=== PATIENT | female | born 1950 | race Asian ===

== ENCOUNTER 2018-07-26 21:11 | Emergency (ER) | payer MEDICARE, OTHER ==
--- NOTE | 2018-07-26 21:28 | ED ---
Dizziness - HPI Summary HPI Summary: Patient is a 67 y/o F presenting to ED with complaints of room-spinning dizziness onsetting as she was cooking dinner tonight. She states that she went onto her cough to lie down, but dizziness persisted. Patient states that she became nauseous, later vomited. In room, she states that she still feels "a bit weird" and nauseated. She denies having experienced ear ringing. BP is 201/122 in room, patient denies Hx of HTN. Patient is not on blood thinners, Hx of meningioma removal. On triage, pain is denied, nothing is noted to aggravate/ alleviate Sx. Home medications and allergies are reviewed. - History Of Current Complaint Chief Complaint: EDDizziness Stated Complaint: DIZZINESS/NAUSEA/VOMITING Time Seen by Provider: 07/26/18 21:16 Hx Obtained From: Patient Onset/Duration: Still Present Timing: Hours Severity Currently: None Character: Room Spinning Aggravating Factor(s): Nothing Alleviating Factor(s): Nothing Associated Signs And Symptoms: Positive: Nausea, Vomiting, Other: - NEGATIVE - EAR RINGING - Allergies/Home Medications Allergies/Adverse Reactions: Allergies Allergy/AdvReac Type Severity Reaction Status Date / Time Buspirone [From Buspar] Allergy Unknown AGITATED, Verified 11/05/16 11:02 SHIVERY SHAKES SEASONAL Allergy Unknown SNEEZES, Uncoded 11/05/16 11:02 ENVIRONMENTAL/HAYFEVER ITCHY EYES PMH/Surg Hx/FS Hx/Imm Hx Endocrine/Hematology History: Denies: Hx Diabetes Cardiovascular History: Denies: Hx Hypertension, Hx Pacemaker/ICD Respiratory History: Reports: Hx Asthma - HAVE NOT USED INHALERS IN OVER 8 YEARS GI History: Reports: Hx Gastroesophageal Reflux Disease - ACID REFLUX, PRN PEPTO BISMOL TABLET, NONE IN OVER 2 YEARS History: Reports: Other Problems/Disorders - dysplasia of vagina, urge incontinence Denies: Hx Renal Disease Musculoskeletal History: Reports: Other Musculoskeletal History - osteopenia Denies: Hx Osteoporosis Sensory History: Reports: Hx Contacts or Glasses Denies: Hx Hearing Aid Opthamlomology History: Reports: Hx Contacts or Glasses Neurological History: Reports: Hx Headaches - MORNING HEADACHES, Other Neuro Impairments/Disorders - MENGINOMA OF BRAIN Psychiatric History: Reports: Hx Anxiety - HX OF, NO MEDS, Hx Depression Denies: Hx Panic Disorder - Cancer History Hx Chemotherapy: No Hx Radiation Therapy: No - Surgical History Surgery Procedure, Year, and Place: 1949 REMOVAL OF BIRTHMARK ON HEAD, AN ;. 1956 TONSILECTOMY,. 1998 CERVIX BIOPSY,. 11/21/14 CYST REMOVED FROM LEFT EYE- ;. 09/06/15 MENINGECTOMY OF BRAIN - [facility] Anesthesia Reactions: No - SEDATION ONLY Infectious Disease History: No Infectious Disease History: Denies: Traveled Outside the [place] in Last 30 Days - Family History Known Family History: Negative: Blood Disorder - Social History Alcohol Use: Occasionally Substance Use Type: Reports: None Smoking Status (MU): Never Smoked Tobacco Review of Systems Positive: Other - NEGATIVE - EAR RINGING Positive: Vomiting, Nausea Neurological: Other - POSITIVE - DIZZINESS All Other Systems Reviewed And Are Negative: Yes Physical Exam - Summary Physical Exam Summary: VITAL SIGNS: Reviewed. GENERAL: Patient is a well-developed and nourished female who is lying comfortable in the stretcher. Patient is not in any acute respiratory distress. HEAD AND FACE: No signs of trauma. No ecchymosis, hematomas or skull depressions. No sinus tenderness. EYES: PERRLA, EOMI x 2, No injected conjunctiva, no nystagmus. EARS: Hearing grossly intact. Ear canals and tympanic membranes are within normal limits. MOUTH: Oropharynx within normal limits. NECK: Supple, trachea is midline, no adenopathy, no JVD, no carotid bruit, no c- spine tenderness, neck with full ROM. CHEST: Symmetric, no tenderness at palpation LUNGS: Clear to auscultation bilaterally. No wheezing or crackles. CVS: Regular rate and rhythm, S1 and S2 present, no murmurs or gallops appreciated. ABDOMEN: Soft, non-tender. No signs of distention. No rebound no guarding, and no masses palpated. Bowel sounds are normal. EXTREMITIES: FROM in all major joints, no edema, no cyanosis or clubbing. NEURO: Alert and oriented x 3. No acute neurological deficits. Speech is normal and follows commands. Good coordination. GCS 15. SKIN: Dry and warm Triage Information Reviewed: Yes Vital Signs On Initial Exam: Initial Vitals Temp Pulse Resp BP Pulse Ox 98.4 F 75 18 217/124 97 07/26/18 21:14 07/26/18 21:14 07/26/18 21:14 07/26/18 21:14 07/26/18 21:14 Vital Signs Reviewed: Yes Diagnostics - Vital Signs Vital Signs Temp Pulse Resp BP Pulse Ox 07/26/18 21:14 98.4 F 75 18 217/124 97 - Laboratory Result Diagrams: 07/26/18 21:52 07/26/18 21:52 Lab Statement: Any lab studies that have been ordered have been reviewed, and results considered in the medical decision making process. - CT brain ct CT Interpretation Completed By: Radiologist Summary of CT Findings: BRAIN CT IMPRESSION: No acute intracranial abnormality. This report was reviewed by ED physician. - EKG 2119 Cardiac Rate: NL - rate of 68 BPM EKG Rhythm: Sinus Rhythm Summary of EKG Findings: EKG showed sinus rhythm with rate of 68 BPM, non- specific T wave changes in inferior leads. Re-Evaluation - Re-Evaluation First Eval Re-Evaluation Time: 23:13 Change: Improved Comment: BP is 166/96. Results of labs and tests were discussed with patient, she will be discharged to home. She is agreeable with this. Dizzy Course/Dx - Course Course Of Treatment: Patient is a 67 y/o F presenting to ED with complaints of room-spinning dizziness onsetting as she was cooking dinner tonight. She states that she went onto her cough to lie down, but dizziness persisted. Patient states that she became nauseous, later vomited. In room, she states that she still feels "a bit weird" and nauseated. She denies having experienced ear ringing. BP is 201/122 in room, patient denies Hx of HTN. Patient is not on blood thinners, Hx of meningioma removal. Physical exam is normal, patient has good coordination. EKG showed sinus rhythm with rate of 68 BPM, non-specific T wave changes in inferior leads. BRAIN CT IMPRESSION: No acute intracranial abnormality. Labs showed MPV 6.7, BUN/creatinine 27.5, glucose 120, trop 0, TSH 3.34. UA negative. During ED course, patient received Zofran 8 mg IV, antivert 25 mg PO, apresoline 5 mg IV x2. BP is 166/96. Results of labs and tests were discussed with patient, she will be discharged to home. She is agreeable with this. - Diagnoses Provider Diagnoses: HTN (hypertension), Benign positional vertigo Discharge - Sign-Out/Discharge Documenting (check all that apply): Patient Departure - discharge - Discharge Plan Condition: Stable Disposition: HOME Prescriptions: Lisinopril TAB* [Prinivil TAB 5 MG*] 5 mg PO DAILY #30 tab Meclizine TAB* [Antivert 12.5 TAB*] 25 mg PO TID PRN #30 tab PRN Reason: Vertigo Patient Education Materials: Benign Paroxysmal Positional Vertigo (ED), Hypertension (ED) Referrals: Lakshmi Wilburn MD [Primary Care Provider] - 2 Days Additional Instructions: MONITOR YOUR BLOOD PRESSURE AT HOME. RETURN TO THE EMERGENCY DEPARTMENT FOR CHANGING OR WORSENING SYMPTOMS. FOLLOW UP WITH PRIMARY CARE PHYSICIAN IN 1-2 DAYS. - Attestation Statements Document Initiated by Scribe: Yes Documenting Scribe: AMARI DIETZ Provider For Whom Cain is Documenting (Include Credential): GRACY TEJEDA MD Scribe Attestation: AMARI Broderick , scribed for GRACY TEJEDA MD on 07/26/18 at 2217. Status of Scribe Document: Ready
[2018-07-26] MEDS ORDERED: Meclizine TAB* 12.5 MG PO ONE ×2 (21:30→23:20)
[2018-07-26] MEDS ORDERED: hydrALAZINE IV* 20 MG/ML VIAL IV SLOW PU ONE ×2 (21:30→22:19)
[2018-07-26 22:00] LABS: ABS Basophils 0.1 10^3/ul (0-0.2); ABS Eosinophils 0.1 10^3/ul (0-0.6); ABS Monocytes 0.3 10^3/ul (0-0.8); ABS Neutrophils 5.3 10^3/ul (1.5-7.7); ABS Nucleated RBC 0 10^3/ul; Eosinophil % 0.9 %; Hematocrit 41 % (35-47); Hemoglobin 13.7 g/dl (12.0-16.0); Lymphocyte % 15.1 %; Mean Corpuscular HGB Conc 33 g/dl (31-36); Mean Corpuscular Hemoglobin 30 pg (27-31); Mean Corpuscular Volume 90 fL (80-97); Mean Platelet Volume 6.7 fL (7.4-10.4); Nucleated Red Blood Cells % 0.1; Platelet Count 239 10^3/ul (150-450); Red Blood Count 4.62 10^6/ul (4.00-5.40); Red Cell Distribution Width 14 % (10.5-15); White Blood Count 6.7 10^3/ul (3.5-10.8)
[2018-07-26 22:08] LABS: Activated Partial Thrombo Time 28.7 seconds (26.0-36.3); INR 0.84 (0.77-1.02)
[2018-07-26 22:16] LABS: Albumin 4.2 g/dL (3.2-5.2); Albumin/Globulin Ratio 1.6 (1-3); BUN/Creatinine Ratio 27.5 (8-20); Calcium 9.6 mg/dL (8.6-10.3); EGFR Non-African American 71.1 (>60); Globulin 2.6 g/dL (2-4); Magnesium 2.1 mg/dL (1.9-2.7); Potassium 3.5 mmol/L (3.5-5.0); Total Bilirubin 0.4 mg/dL (0.2-1.0); Total Protein 6.8 g/dL (6.4-8.9)
[2018-07-26] MEDS ORDERED: Ondansetron INJ* 2 MG/ML VIAL IV ONE (22:32)
[2018-07-26 22:36] LABS: TSH (Thyroid Stimulating Horm) 3.34 mcIU/mL (0.34-5.60)
[2018-07-26 22:42] LABS: Urine Appearance Clear; Urine Bilirubin Negative (Negative); Urine Blood Negative (Negative); Urine Color Straw; Urine Glucose Negative (Negative); Urine Ketones Negative (Negative); Urine Nitrite Negative (Negative); Urine Protein Negative (Negative); Urine Specific Gravity 1.014 (1.010-1.030); Urine Urobilinogen Negative (Negative)
[2018-07-26 23:12] VITALS: BP 166/96
== END 2018-07-26 23:45 | disposition home or self-care (01) ==
LOC: ED 21:11
DX: I10 Essential (primary) hypertension (principal); H81.10 Benign paroxysmal vertigo, unspecified ear; R11.2 Nausea with vomiting, unspecified
CPT/HCPCS: 36415; 70450; 80053; 81003; 83735; 84443; 84484; 85025; 85610; 85730; 93005; 96374; 96375; 96376; 99284; A9270-GY; J0360; J2405

== ENCOUNTER 2019-10-07 09:35 | Day surgery (SDC) | payer MEDICARE, OTHER ==
--- NOTE | 2019-10-06 09:31 | HP ---
CC: Dr. Lakshmi Wilburn; Dr. Odessa Norris * ADMITTING HISTORY AND PHYSICAL: DATE OF ADMISSION: 10/07/19 ADMITTING DIAGNOSIS: Bladder tumor (questionable bladder primary versus tumor infiltrating into bladder). PLANNED PROCEDURE: Transurethral resection of bladder tumor, right retrograde and right stent insertion. SURGEON: Dr. Delaney. HISTORY OF PRESENT ILLNESS: Jeremias Potts is a 68-year-old lady who has had increasing discomfort related to the bladder in the form of increasing urinary frequency and urgency and incontinence. She had imaging done including a CT scan which revealed what appears to be a tumor within the bladder with some perivesical infiltrative changes. A cystoscopy done in my office last week had revealed a solid appearing tumor in the mid trigone extending to the bladder neck. This was fairly large and did not have a physical appearance of a primary bladder transitional cell carcinoma. The right orifice was difficult to visualize, and she is now being brought in for transurethral resection of the bladder tumor and possible right stent insertion. It is possible that the tumor instead of arising from the mucosa of the bladder may be infiltrating into the bladder, and Dr. Norris will be doing the procedure after my procedure for an endometrial biopsy. PAST MEDICAL HISTORY: Significant for: 1. Hypertension. 2. Asthma. 3. History of meningioma. PAST SURGICAL HISTORY: Significant for: 1. Craniotomy. 2. Pulmonary meningioma in 2016. MEDICATIONS ON ADMISSION: 1. Amlodipine 5 mg daily. 2. Pulmicort inhaler daily. 3. Multiple vitamins and supplements. ALLERGIES AND INTOLERANCES: BUSPAR and LISINOPRIL. FAMILY HISTORY: Negative for bladder or kidney cancer. SOCIAL HISTORY: Smoking history: She is a nonsmoker. REVIEW OF SYSTEMS: She is otherwise in good health. There is no history of diabetes mellitus or any other major systemic illness. PHYSICAL EXAMINATION GENERAL: Reveals a pleasant elderly lady who uses a cane for ambulation. VITAL SIGNS: Blood pressure is 122/82, pulse 70 per minute and regular, temperature 96, oxygen saturation 98% on room air. LUNGS: Clear bilaterally. CARDIOVASCULAR: Regular rate and rhythm. S1, S2. ABDOMEN: Soft without flank tenderness or masses. IMPRESSION: A 68-year-old nonsmoker with what appears to be a bladder tumor with a somewhat unusual appearance and not typical of a primary bladder transitional cell carcinoma. Planned procedure is transurethral resection of bladder tumor and right stent insertion. [id number]/CPS #: [id number] [facility]OSPITALArias
[~2019-10-07 09:35] MED LIST: Buffered Lidocaine 1% SYRIN* 1 ML/SYRINGE INTRADERM ONE; Dexamethasone IV* 4 MG/ML 1 ML (4 MG) IV SLOW PU ONE; Famotidine IV* 10 MG/ML 2 ML (20 mg) IV ONE; Lactated Ringers 1000 ML Bag* 1,000 ML IV SCH
[2019-10-07] MEDS ORDERED: Dexamethasone IV* 4 MG/ML 1 ML (4 MG) ONE (09:58)
[2019-10-07] MEDS ORDERED: Buffered Lidocaine 1% SYRIN* 1 ML/SYRINGE INTRADERM ONE (09:59)
[2019-10-07] MEDS ORDERED: Famotidine IV* 10 MG/ML 2 ML (20 mg) ONE (09:59)
[2019-10-07] MEDS ORDERED: cefTRIAXone(*) 2 GM ADDV.VIAL IVPB ONE (09:59)
[2019-10-07] MEDS ORDERED: Midazolam* 1 MG/ML 2 ML VIAL (2 MG) ONE (11:01)
[2019-10-07] MEDS ORDERED: fentaNYL* 50 MCG/ML 2 ML VIAL (100 MCG VIAL) ONE (11:01)
[2019-10-07 11:08] LABS: ABS Basophils 0.1 10^3/ul (0-0.2); ABS Eosinophils 0.1 10^3/ul (0-0.6); ABS Lymphocytes 1.1 10^3/ul (1.0-4.8); ABS Monocytes 0.3 10^3/ul (0-0.8); ABS Neutrophils 3.1 10^3/ul (1.5-7.7); Eosinophil % 1.2 %; Hematocrit 40 % (35-47); Hemoglobin 13.5 g/dL (12.0-16.0); Mean Corpuscular HGB Conc 34 g/dL (31-36); Mean Corpuscular Hemoglobin 30 pg (27-31); Mean Corpuscular Volume 89 fL (80-97); Mean Platelet Volume 6.7 fL (7.4-10.4); Platelet Count 268 10^3/uL (150-450); Red Blood Count 4.49 10^6 /uL (3.70-4.87); Red Cell Distribution Width 14 % (10-15); White Blood Count 4.6 10^3/uL (3.5-10.8)
[2019-10-07] MEDS ORDERED: Furosemide IV* 10 MG/ML 2 ML VIAL (20 MG) ONE (11:57)
[2019-10-07] MEDS ORDERED: Fluorescein 10% INJ* 100 MG/ML AMP ONE (11:59)
[2019-10-07] MEDS ORDERED: Naloxone* 0.4 MG/ML 1 ML VIAL IV PRN (13:22)
[2019-10-07] MEDS ORDERED: DiMENhydriNATE IV* 50 MG/ML VIAL IV PUSH PRN (13:22)
[2019-10-07] MEDS ORDERED: fentaNYL* 50 MCG/ML 2 ML VIAL (100 MCG VIAL) IV PRN (13:22)
[2019-10-07] MEDS ORDERED: Ketorolac INJ* 30 MG/ML 1 ML VIAL IV PRN (13:22)
[2019-10-07] MEDS ORDERED: Iohexol 180 (CONTRAST) 10 ML SDV IV ONE (14:58)
--- NOTE | 2019-10-07 15:04 | OP ---
CC: Dr. Lakshmi Wilburn * DATE OF OPERATION: 10/07/19 - [facility] DATE OF : 46 SURGEON: Cricket Delaney MD ANESTHESIOLOGIST: Dr. Falcon. ANESTHESIA: Spinal. PRE-OP DIAGNOSES: 1. Bladder tumor. 2. Voiding dysfunction. POST-OP DIAGNOSES: 1. Bladder tumor. 2. Voiding dysfunction. OPERATIVE PROCEDURE: 1. Transurethral resection and fulguration of bladder tumor (5 to 6 cm). 2. Right retrograde pyelogram and right stent insertion. COMPLICATIONS: None. ESTIMATED BLOOD LOSS: Less than 25 cc. STENT USED: 7-[place] stent, right ureter. OPERATIVE FINDINGS: Solid-appearing tumor involving mid to right side of trigone of urinary bladder and extending towards bladder neck (not a typical appearance of primary bladder carcinoma). POSTOPERATIVE CONDITION: Stable. INDICATIONS: Jeremias Potts is a 68-year-old lady who was evaluated for voiding dysfunction and was noted to have the above-mentioned bladder tumor. DESCRIPTION OF PROCEDURE: After induction of spinal anesthesia, the patient was placed in dorsal lithotomy position. Sequential compression devices were in place and functioning. 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 The bladder was examined. The floor of the bladder from the trigone to the bladder neck especially on the right side was involved with a solid tumor with a pseudopapillary appearance. This does not have the typical appearance of a primary bladder carcinoma, but may represent a tumor infiltrating into the bladder from outside or a non-transitional neoplasm. The tumor was encroaching on, but not obstructing the right orifice. The remainder of the bladder was unremarkable. A guidewire was introduced into the right orifice. Retrograde pyelogram did not reveal any significant evidence of obstruction, although the distal most part of the ureter certainly appeared to be partly occluded on advancement of the open- ended catheter. Next, attention was directed to resecting the tumor, which was done using the resectoscope in standard fashion. The resected tumor was removed and sent for histopathology. Hemostasis was secured at the end of the procedure and there was no evidence of bladder perforation. Next, a 7-[place] stent was placed over the previously placed guidewire. Once this was successfully positioned under fluoroscopy, a 24-[place] Gabriel catheter was placed for temporary bladder drainage. At the conclusion of my part of the procedure, Dr. Norris of Gynecology took over for her procedure, which will be dictated separately. [id number]/[facility] #: [id number] NANCY
[2019-10-07] MEDS ORDERED: Ketorolac INJ* 30 MG/ML 1 ML VIAL ONE (15:33)
[2019-10-07 17:27] VITALS: BP 128/78
--- NOTE | 2019-10-08 11:13 | OP ---
DATE OF OPERATION: 10/07/19 DATE OF : 46 SURGEON: Odessa Norris MD. KNOWLEDGE MANAGEMENT ADVISOR: None. PRE-OP DIAGNOSIS: Endometrial thickening. POST-OP DIAGNOSES: Endometrial thickening and endometrial polyp. OPERATIVE PROCEDURE: Dilation, curettage, and MyoSure resection of endometrial polyp. ESTIMATED BLOOD LOSS: Minimal. URINE OUTPUT: Not recorded. FLUIDS: 1500 cc total, this includes the portion of the case that was done by Urology. FINDINGS: Revealed an intrauterine mass posterior wall measuring about 1.5 cm in size and several endocervical polyps. COMPLICATIONS: None apparent. DISPOSITION: Stable to recovery room. DESCRIPTION OF PROCEDURE: The patient was placed in cystoscopic fluoroscopic leg supports. Perineum and vagina were prepped and draped in the sterile standard fashion. The patient was identified with universal protocol for correct position, procedure, and patient. A Gabriel catheter was already in place from prior procedure of resection of the bladder wall. Sterile speculum was inserted. Cervix was visualized, grasped on the anterior lip. The cervix was dilated to #6 Hegar. Hysteroscopy was inserted which revealed an endometrial mass that would require MyoSure resection. Scope was then opened up. The Hegar dilators were then used to dilate to #8. The MyoSure scope was then inserted and the resection was carried out with a small resection blade in total. Uterine cavity with normal appearance after resection of this posterior wall endometrial mass, tubal ostia were visualized. The resectoscope was removed. There was 1 cervical polyp that was also resected in the endocervical canal with the MyoSure resectoscope. Sharp curettage was performed. Single- tooth tenaculum was removed. Sterile speculum was removed. The patient tolerated the procedure well and went to recovery room in stable condition. [id number]/CPS #: [id number] MTDD
== END 2019-10-07 18:24 | disposition home or self-care (01) ==
LOC: OR 09:35
PROVIDERS: ATTEND Urology
DX: C67.0 Malignant neoplasm of trigone of bladder (principal); N84.0 Polyp of corpus uteri; I10 Essential (primary) hypertension; J45.909 Unspecified asthma, uncomplicated; Z85.841 Personal history of malignant neoplasm of brain; K21.9 Gastro-esophageal reflux disease without esophagitis; F41.8 Other specified anxiety disorders; M85.80 Other specified disorders of bone density and structure, unspecified site
CPT/HCPCS: 36415; 74420; 85025; 86850; 86900; 86901; 88305; A9270-GY; C2625; J0696; J1100; J1885; J1940; J2250; J3010

== ENCOUNTER 2020-08-06 21:55 | Inpatient (IN) ==
[2020-08-06] MEDS ORDERED: NS 0.9% 1000 ml BAG 1,000 ML IV.FLUID IV ONE (22:26)
[2020-08-06] MEDS ORDERED: cefTRIAXone 1 gm/50 mL NS BAG 1 GM/50 ML BAG IV ONE (22:47)
[2020-08-06 22:59] LABS: Urine Appearance Turbid; Urine Bilirubin Negative (Negative); Urine Blood 1+ (Negative); Urine Color Amber; Urine Glucose Negative (Negative); Urine Ketones Negative (Negative); Urine Nitrite Negative (Negative); Urine Protein 2+(100 mg/dL) (Negative); Urine Specific Gravity 1.011 (1.010-1.030); Urine Urobilinogen Negative (Negative)
[2020-08-06 23:02] LABS: Urine Bacteria 3+ (Absent); Urine Red Blood Cell 3+(>10/hpf) (Absent); Urine White Blood Cell 3+(>20/hpf) (Absent)
[2020-08-06 23:28] LABS: ABS Lymphocytes 0.4 10^3/ul (1.0-4.8); ABS Monocytes 0.8 10^3/ul (0-0.8); ABS Neutrophils 9.4 10^3/ul (1.5-7.7); Hematocrit 35 % (35-47); Hemoglobin 11.8 g/dL (12.0-16.0); Mean Corpuscular HGB Conc 34 g/dL (31-36); Mean Corpuscular Hemoglobin 30 pg (27-31); Mean Corpuscular Volume 90 fL (80-97); Platelet Count 193 10^3/uL (150-450); Red Blood Count 3.91 10^6 /uL (3.70-4.87); Red Cell Distribution Width 14 % (10-15); White Blood Count 10.6 10^3/uL (3.5-10.8)
[2020-08-06 23:40] LABS: Activated Partial Thrombo Time 31.7 seconds (26.0-38.0); INR 1.07 (0.82-1.09)
[2020-08-06 23:47] LABS: ALT 103 U/L (7-52); AST 74 U/L (13-39); Albumin/Globulin Ratio 1.1 (1-3); Alkaline Phosphatase 136 U/L (34-104); Anion Gap 10 mmol/L (2-11); BUN/Creatinine Ratio 18.7 (8-20); Blood Urea Nitrogen 41 mg/dL (6-24); C Reactive Protein 237.49 mg/L (<8.01); CO2 Carbon Dioxide 24 mmol/L (22-32); Calcium 9.8 mg/dL (8.6-10.3); Chloride 99 mmol/L (101-111); EGFR African American 26.8 (>60); EGFR Non-African American 22.1 (>60); Globulin 3.8 g/dL (2-4); Glucose 117 mg/dL (70-100); Potassium 4.1 mmol/L (3.5-5.0); Sodium 133 mmol/L (135-145); Total Protein 7.8 g/dL (6.4-8.9)
[2020-08-06 23:58] LABS: Troponin I 0.04 ng/mL (<0.03)
[2020-08-07] MEDS ORDERED: Albuterol HFA INHALER 8 gm MDI INH PRN (01:38)
[2020-08-07] MEDS ORDERED: cefTRIAXone 1 gm/50 mL NS BAG 1 GM/50 ML BAG IVPB SCH ×2 (01:44→09:00)
[2020-08-07] MEDS ORDERED: Lactated Ringers 1000 ml BAG 1,000 ML IV SCH (02:00)
[2020-08-07] MEDS: Polyethylene Glycol 3350 17 GM PACKET PO SCH ×2 (04:37→07:45)
[2020-08-07 05:33] LABS: ABS Lymphocytes 0.3 10^3/ul (1.0-4.8); ABS Monocytes 0.8 10^3/ul (0-0.8); ABS Neutrophils 8.1 10^3/ul (1.5-7.7); Eosinophil % 0.1 %; Hematocrit 31 % (35-47); Hemoglobin 10.5 g/dL (12.0-16.0); Lymphocyte % 2.8 %; Mean Corpuscular HGB Conc 33 g/dL (31-36); Mean Corpuscular Hemoglobin 30 pg (27-31); Mean Corpuscular Volume 90 fL (80-97); Mean Platelet Volume 6.8 fL (7.4-10.4); Platelet Count 171 10^3/uL (150-450); Red Cell Distribution Width 13 % (10-15); White Blood Count 9.2 10^3/uL (3.5-10.8)
[2020-08-07 05:55] LABS: Anion Gap 8 mmol/L (2-11); BUN/Creatinine Ratio 18.8 (8-20); Blood Urea Nitrogen 36 mg/dL (6-24); CO2 Carbon Dioxide 20 mmol/L (22-32); Calcium 8.5 mg/dL (8.6-10.3); Chloride 107 mmol/L (101-111); EGFR African American 31.2 (>60); EGFR Non-African American 25.7 (>60); Glucose 121 mg/dL (70-100); Potassium 3.7 mmol/L (3.5-5.0); Sodium 135 mmol/L (135-145)
[2020-08-07] MEDS: Enoxaparin 30 MG/0.3 ML SYR SUBCUT SCH (06:27)
[2020-08-07] MEDS: Cholecalciferol (VIT D3) 1,000 unit TAB PO SCH (07:45)
[2020-08-07] MEDS: VISION ESSENTIAL PO SCH (07:45)
[2020-08-07] MEDS ORDERED: Budesonide Flexhaler 180 (NF) 180 MCG/ACT MDI INH SCH (09:00)
[2020-08-07 09:21] LABS: Troponin I 0.03 ng/mL (<0.03)
[2020-08-07] MEDS: cefTRIAXone 1 gm/50 mL NS BAG 1 GM/50 ML BAG IVPB SCH (23:58)
[2020-08-08] MEDS: Enoxaparin 30 MG/0.3 ML SYR SUBCUT SCH (05:18)
[2020-08-08 08:17] LABS: ABS Lymphocytes 0.4 10^3/ul (1.0-4.8); ABS Monocytes 0.6 10^3/ul (0-0.8); ABS Neutrophils 4.9 10^3/ul (1.5-7.7); Eosinophil % 0.3 %; Hematocrit 29 % (35-47); Lymphocyte % 6.8 %; Mean Corpuscular HGB Conc 35 g/dL (31-36); Mean Corpuscular Hemoglobin 31 pg (27-31); Mean Corpuscular Volume 89 fL (80-97); Mean Platelet Volume 7.2 fL (7.4-10.4); Nucleated Red Blood Cells % 0.1; Platelet Count 167 10^3/uL (150-450); Red Blood Count 3.25 10^6 /uL (3.70-4.87); Red Cell Distribution Width 13 % (10-15); White Blood Count 5.9 10^3/uL (3.5-10.8)
[2020-08-08 08:32] LABS: Anion Gap 6 mmol/L (2-11); BUN/Creatinine Ratio 15.4 (8-20); Blood Urea Nitrogen 28 mg/dL (6-24); CO2 Carbon Dioxide 24 mmol/L (22-32); Calcium 8.5 mg/dL (8.6-10.3); Chloride 108 mmol/L (101-111); EGFR African American 33.1 (>60); EGFR Non-African American 27.4 (>60); Glucose 117 mg/dL (70-100); Potassium 3.6 mmol/L (3.5-5.0); Sodium 138 mmol/L (135-145)
[2020-08-08] MEDS: Polyethylene Glycol 3350 17 GM PACKET PO SCH (09:34)
[2020-08-08] MEDS: Cholecalciferol (VIT D3) 1,000 unit TAB PO SCH (09:34)
[2020-08-08] MEDS: VISION ESSENTIAL PO SCH (09:36)
[2020-08-08 09:38] LABS: ALT 81 U/L (7-52); AST 62 U/L (13-39); Albumin 2.9 g/dL (3.2-5.2); Alkaline Phosphatase 159 U/L (34-104); Total Protein 5.9 g/dL (6.4-8.9)
[2020-08-08] MEDS: cefTRIAXone 1 gm/50 mL NS BAG 1 GM/50 ML BAG IVPB SCH (23:25)
[2020-08-09] MEDS: Enoxaparin 30 MG/0.3 ML SYR SUBCUT SCH (04:35)
[2020-08-09 04:43] LABS: ABS Lymphocytes 0.5 10^3/ul (1.0-4.8); ABS Monocytes 0.7 10^3/ul (0-0.8); ABS Neutrophils 4.7 10^3/ul (1.5-7.7); Eosinophil % 0.5 %; Hematocrit 30 % (35-47); Hemoglobin 10.1 g/dL (12.0-16.0); Lymphocyte % 7.9 %; Mean Corpuscular HGB Conc 34 g/dL (31-36); Mean Corpuscular Hemoglobin 30 pg (27-31); Mean Corpuscular Volume 89 fL (80-97); Platelet Count 197 10^3/uL (150-450); Red Cell Distribution Width 13 % (10-15)
[2020-08-09 04:58] LABS: BUN/Creatinine Ratio 14.5 (8-20); Calcium 8.7 mg/dL (8.6-10.3); EGFR African American 35.1 (>60); Potassium 3.5 mmol/L (3.5-5.0)
[2020-08-09] MEDS: Polyethylene Glycol 3350 17 GM PACKET PO SCH (08:39)
[2020-08-09] MEDS: Cholecalciferol (VIT D3) 1,000 unit TAB PO SCH (08:39)
[2020-08-09] MEDS: VISION ESSENTIAL PO SCH (08:44)
[2020-08-09] MEDS: cefTRIAXone 1 gm/50 mL NS BAG 1 GM/50 ML BAG IVPB SCH (23:07)
[2020-08-10] MEDS: Enoxaparin 30 MG/0.3 ML SYR SUBCUT SCH (04:59)
[2020-08-10 05:27] LABS: ABS Eosinophils 0.1 10^3/ul (0-0.6); ABS Lymphocytes 0.7 10^3/ul (1.0-4.8); ABS Monocytes 0.8 10^3/ul (0-0.8); ABS Neutrophils 3.2 10^3/ul (1.5-7.7); Eosinophil % 1.3 %; Hematocrit 29 % (35-47); Hemoglobin 9.9 g/dL (12.0-16.0); Lymphocyte % 15.4 %; Mean Corpuscular HGB Conc 34 g/dL (31-36); Mean Corpuscular Hemoglobin 30 pg (27-31); Mean Corpuscular Volume 90 fL (80-97); Platelet Count 231 10^3/uL (150-450); Red Blood Count 3.28 10^6 /uL (3.70-4.87); Red Cell Distribution Width 13 % (10-15); White Blood Count 4.8 10^3/uL (3.5-10.8)
[2020-08-10 05:44] LABS: Anion Gap 7 mmol/L (2-11); BUN/Creatinine Ratio 15.1 (8-20); Blood Urea Nitrogen 26 mg/dL (6-24); C Reactive Protein 73.73 mg/L (<8.01); CO2 Carbon Dioxide 25 mmol/L (22-32); Calcium 8.9 mg/dL (8.6-10.3); Chloride 109 mmol/L (101-111); EGFR African American 35.4 (>60); EGFR Non-African American 29.2 (>60); Glucose 114 mg/dL (70-100); Potassium 3.8 mmol/L (3.5-5.0); Sodium 141 mmol/L (135-145)
[2020-08-10] MEDS: Polyethylene Glycol 3350 17 GM PACKET PO SCH (09:28)
[2020-08-10] MEDS: Cholecalciferol (VIT D3) 1,000 unit TAB PO SCH (09:29)
[2020-08-10] MEDS: VISION ESSENTIAL PO SCH (09:30)
[2020-08-10 11:07] LABS: % Iron Saturation 14 % (15-55); Iron 35 ug/dL (50-212); Total Iron Binding Capacity 246 mcg/dL (250-450); Transferrin 176 mg/dL (203-362); Unsaturated Iron Binding < 231 ug/dL
[2020-08-10 12:35] LABS: Ferritin 141.9 ng/mL (11-307)
[2020-08-10] MEDS: cefTRIAXone 1 gm/50 mL NS BAG 1 GM/50 ML BAG IVPB SCH (23:20)
[2020-08-11] MEDS: Enoxaparin 30 MG/0.3 ML SYR SUBCUT SCH (05:34)
[2020-08-11 06:09] LABS: BUN/Creatinine Ratio 18.3 (8-20); EGFR African American 37.4 (>60); EGFR Non-African American 30.9 (>60); Potassium 4.1 mmol/L (3.5-5.0)
[2020-08-11 06:11] LABS: ABS Basophils 0.1 10^3/ul (0-0.2); ABS Eosinophils 0.1 10^3/ul (0-0.6); ABS Monocytes 0.6 10^3/ul (0-0.8); ABS Neutrophils 2.8 10^3/ul (1.5-7.7); Eosinophil % 2.2 %; Hematocrit 30 % (35-47); Lymphocyte % 21.4 %; Mean Corpuscular HGB Conc 33 g/dL (31-36); Mean Corpuscular Hemoglobin 30 pg (27-31); Mean Corpuscular Volume 89 fL (80-97); Mean Platelet Volume 6.8 fL (7.4-10.4); Nucleated Red Blood Cells % 0.1; Platelet Count 275 10^3/uL (150-450); Red Blood Count 3.37 10^6 /uL (3.70-4.87); Red Cell Distribution Width 14 % (10-15); White Blood Count 4.5 10^3/uL (3.5-10.8)
[2020-08-11] MEDS: Cholecalciferol (VIT D3) 1,000 unit TAB PO SCH (10:11)
[2020-08-11] MEDS: Polyethylene Glycol 3350 17 GM PACKET PO SCH (10:11)
[2020-08-11] MEDS: VISION ESSENTIAL PO SCH (10:21)
[2020-08-11 13:45] VITALS: BP 100/70
== END 2020-08-11 15:45 | disposition home or self-care (01) | DRG 872 ==
LOC: ED 21:55 → MED 08-07 01:33
PROVIDERS: ADMIT Internal Medicine; ATTEND Student in an Organized Health Care Education/Training Program

== ENCOUNTER 2022-05-02 14:08 | Inpatient (IN) ==
[2022-05-02] MEDS ORDERED: NS 0.9% 1000 ml BAG 1,000 ML IV ONE (16:15)
[2022-05-02 17:08] LABS: Activated Partial Thrombo Time 35.6 seconds (26.0-38.0); INR 0.93 (0.89-1.11)
[2022-05-02 17:14] LABS: Albumin 3.7 g/dL (3.2-5.2); Calcium 8.9 mg/dL (8.6-10.3); Total Bilirubin 0.8 mg/dL (0.2-1.0)
[2022-05-02 17:16] LABS: Hematocrit 25 % (35-47); Hemoglobin 8.2 g/dL (12.0-16.0); Mean Corpuscular HGB Conc 33 g/dL (31-36); Mean Corpuscular Hemoglobin 31 pg (27-31); Mean Corpuscular Volume 94 fL (80-97); Red Blood Count 2.69 10^6 /uL (3.70-4.87); Red Cell Distribution Width 16 % (10-15); White Blood Count 3.1 10^3/uL (3.5-10.8)
[2022-05-02 17:20] LABS: Albumin/Globulin Ratio 1.4 (1-3); Globulin 2.7 g/dL (2-4); Total Protein 6.4 g/dL (6.4-8.9); eGFR CKD-EPI 59.5 (>60)
[2022-05-02 18:30] LABS: ABS Lymphocytes 0.5 10^3/ul (1.0-4.8); ABS Monocytes 0.1 10^3/ul (0-0.8); ABS Neutrophils 2.6 10^3/ul (1.5-7.7); Eosinophil % 0.4 %; Lymphocyte % 15.2 %; Mean Platelet Volume 7.1 fL (7.4-10.4); Nucleated Red Blood Cells % 0.1; Platelet Count 70 10^3/uL (150-450)
[2022-05-02] MEDS ORDERED: Magnesium Sulfate IV 3 GM in NS 0.9% 100 ml BAG 100 ML IVPB ONE (18:47)
[2022-05-02] MEDS ORDERED: Polyethylene Glycol 3350 17 GM PACKET PO PRN (20:00)
[2022-05-02 22:24] LABS: Ferritin 309.7 ng/mL (11-307)
[2022-05-02 22:29] LABS: Hematocrit 24 % (35-47)
[2022-05-03 06:20] LABS: ABS Lymphocytes 0.6 10^3/ul (1.0-4.8); ABS Monocytes 0.1 10^3/ul (0-0.8); ABS Neutrophils 1.8 10^3/ul (1.5-7.7); Eosinophil % 0.9 %; Hematocrit 24 % (35-47); Hemoglobin 7.7 g/dL (12.0-16.0); Lymphocyte % 25.3 %; Mean Corpuscular HGB Conc 33 g/dL (31-36); Mean Corpuscular Hemoglobin 31 pg (27-31); Mean Corpuscular Volume 94 fL (80-97); Mean Platelet Volume 7.1 fL (7.4-10.4); Platelet Count 57 10^3/uL (150-450); Red Blood Count 2.52 10^6 /uL (3.70-4.87); Red Cell Distribution Width 16 % (10-15); White Blood Count 2.5 10^3/uL (3.5-10.8)
[2022-05-03 06:54] LABS: Calcium 8.2 mg/dL (8.6-10.3); Magnesium 2.2 mg/dL (1.9-2.7); Potassium 3.6 mmol/L (3.5-5.0); eGFR CKD-EPI 58.8 (>60)
[2022-05-03] MEDS ORDERED: Sodium Phosphate ADULT ENEMA 133 ML BTL PR ONE ×4 (08:00→08:30)
[2022-05-03 11:30] LABS: Calcium 8.5 mg/dL (8.6-10.3); Potassium 3.6 mmol/L (3.5-5.0); eGFR CKD-EPI 57.4 (>60)
[2022-05-03] MEDS ORDERED: Midazolam 5 mg/5 ml VIAL 1 mg/ml 5 ml VIAL (5 mg) ONE (12:19)
[2022-05-03] MEDS ORDERED: fentaNYL 100 mcg/2 ml 50 MCG/ML VIAL ONE (12:19)
[2022-05-03] MEDS ORDERED: Piperacillin/Tazobac ADVAN 3.375 GM in NS 0.9% 100 ml BAG 100 ML IV ONE (17:30)
[2022-05-03] MEDS ORDERED: Zosyn per Pharmacy NOTE FOLLOW UP SCH (18:00)
[2022-05-03] MEDS: HYDROcodone/ACETAMIN 5/325 mg TAB PO PRN (22:43)
[2022-05-03] MEDS: ZOSYN 3.375 GM Q8H per EXTENDED INFUSION IV SCH (23:08)
[2022-05-03 23:32] LABS: ABS Lymphocytes 0.4 10^3/ul (1.0-4.8); ABS Monocytes 0.1 10^3/ul (0-0.8); ABS Neutrophils 1.1 10^3/ul (1.5-7.7); Eosinophil % 1.2 %; Hematocrit 23 % (35-47); Hemoglobin 7.5 g/dL (12.0-16.0); Lymphocyte % 27.3 %; Mean Corpuscular HGB Conc 33 g/dL (31-36); Mean Corpuscular Hemoglobin 31 pg (27-31); Mean Corpuscular Volume 93 fL (80-97); Mean Platelet Volume 7.4 fL (7.4-10.4); Platelet Count 52 10^3/uL (150-450); Red Blood Count 2.46 10^6 /uL (3.70-4.87); Red Cell Distribution Width 16 % (10-15); White Blood Count 1.6 10^3/uL (3.5-10.8)
[2022-05-03 23:59] LABS: Potassium 3.4 mmol/L (3.5-5.0); eGFR CKD-EPI 58.1 (>60)
[2022-05-04 05:33] LABS: Hematocrit 22 % (35-47); Hemoglobin 7.2 g/dL (12.0-16.0); Mean Corpuscular HGB Conc 33 g/dL (31-36); Mean Corpuscular Hemoglobin 31 pg (27-31); Mean Corpuscular Volume 93 fL (80-97); Mean Platelet Volume 7.4 fL (7.4-10.4); Platelet Count 45 10^3/uL (150-450); Red Blood Count 2.34 10^6 /uL (3.70-4.87); Red Cell Distribution Width 16 % (10-15); White Blood Count 1.5 10^3/uL (3.5-10.8)
[2022-05-04 05:40] LABS: Potassium 3.5 mmol/L (3.5-5.0); eGFR CKD-EPI 55.5 (>60)
[2022-05-04] MEDS: ZOSYN 3.375 GM Q8H per EXTENDED INFUSION IV SCH ×3 (06:13→21:43)
[2022-05-04] MEDS ORDERED: Influenza vaccine *QUAD* *2022-23* 0.5 ML SYRINGE IM ONE (09:00)
[2022-05-05] MEDS: ZOSYN 3.375 GM Q8H per EXTENDED INFUSION IV SCH ×3 (06:01→21:11)
[2022-05-05 06:21] LABS: ABS Lymphocytes 0.6 10^3/ul (1.0-4.8); ABS Monocytes 0.1 10^3/ul (0-0.8); ABS Neutrophils 1.5 10^3/ul (1.5-7.7); Eosinophil % 0.4 %; Hematocrit 22 % (35-47); Hemoglobin 7.1 g/dL (12.0-16.0); Lymphocyte % 25.2 %; Mean Corpuscular HGB Conc 33 g/dL (31-36); Mean Corpuscular Hemoglobin 30 pg (27-31); Mean Corpuscular Volume 93 fL (80-97); Mean Platelet Volume 8.1 fL (7.4-10.4); Platelet Count 34 10^3/uL (150-450); Red Blood Count 2.32 10^6 /uL (3.70-4.87); Red Cell Distribution Width 16 % (10-15); White Blood Count 2.2 10^3/uL (3.5-10.8)
[2022-05-05 07:07] LABS: C Reactive Protein 30.95 mg/L (<8.01); Potassium 3.2 mmol/L (3.5-5.0); eGFR CKD-EPI 59.5 (>60)
[2022-05-05 07:57] LABS: Magnesium 1.7 mg/dL (1.9-2.7)
[2022-05-05] MEDS ORDERED: Magnesium Sulfate 2 gm BAG 2 GM/50 ML BAG IVPB ONE (09:02)
[2022-05-05] MEDS: KCL 20 MEQ/100 ML IVPREMIX 20 MEQ/100 ML BAG IV SCH ×3 (10:39→16:17)
[2022-05-05 17:39] LABS: Hematocrit 28 % (35-47); Hemoglobin 9.3 g/dL (12.0-16.0)
[2022-05-05 22:53] LABS: Hematocrit 29 % (35-47); Hemoglobin 9.4 g/dL (12.0-16.0)
[2022-05-06] MEDS: ZOSYN 3.375 GM Q8H per EXTENDED INFUSION IV SCH ×3 (05:28→22:28)
[2022-05-06 07:27] LABS: ABS Lymphocytes 0.7 10^3/ul (1.0-4.8); ABS Monocytes 0.2 10^3/ul (0-0.8); ABS Neutrophils 1.3 10^3/ul (1.5-7.7); Eosinophil % 1.1 %; Hematocrit 26 % (35-47); Hemoglobin 8.6 g/dL (12.0-16.0); Lymphocyte % 31.2 %; Mean Corpuscular HGB Conc 34 g/dL (31-36); Mean Corpuscular Hemoglobin 31 pg (27-31); Mean Corpuscular Volume 92 fL (80-97); Mean Platelet Volume 7.8 fL (7.4-10.4); Nucleated Red Blood Cells % 0.1; Platelet Count 27 10^3/uL (150-450); Red Blood Count 2.79 10^6 /uL (3.70-4.87); Red Cell Distribution Width 16 % (10-15); White Blood Count 2.2 10^3/uL (3.5-10.8)
[2022-05-06 07:37] LABS: C Reactive Protein 25.42 mg/L (<8.01); Potassium 3.5 mmol/L (3.5-5.0); eGFR CKD-EPI 65.7 (>60)
[2022-05-06] MEDS: HYDROcodone/ACETAMIN 5/325 mg TAB PO PRN (09:13)
[2022-05-06] MEDS: Polyethylene Glycol 3350 17 GM PACKET PO SCH (09:13)
[2022-05-07] MEDS: ZOSYN 3.375 GM Q8H per EXTENDED INFUSION IV SCH ×3 (06:25→23:59)
[2022-05-07] MEDS: Polyethylene Glycol 3350 17 GM PACKET PO SCH (09:34)
[2022-05-07 12:20] LABS: Hematocrit 26 % (35-47); Hemoglobin 8.5 g/dL (12.0-16.0); Mean Corpuscular HGB Conc 33 g/dL (31-36); Mean Corpuscular Hemoglobin 30 pg (27-31); Mean Corpuscular Volume 92 fL (80-97); Red Blood Count 2.79 10^6 /uL (3.70-4.87); Red Cell Distribution Width 15 % (10-15); White Blood Count 2.3 10^3/uL (3.5-10.8)
[2022-05-07 12:21] LABS: ABS Lymphocytes 0.6 10^3/ul (1.0-4.8); ABS Monocytes 0.2 10^3/ul (0-0.8); ABS Neutrophils 1.5 10^3/ul (1.5-7.7); Eosinophil % 0.7 %; Lymphocyte % 27.7 %
[2022-05-07 12:43] LABS: Potassium 3.3 mmol/L (3.5-5.0); eGFR CKD-EPI 63.3 (>60)
[2022-05-07 13:23] LABS: Mean Platelet Volume 7.7 fL (7.4-10.4); Platelet Count 20 10^3/uL (150-450)
[2022-05-07 15:27] LABS: Magnesium 1.5 mg/dL (1.9-2.7)
[2022-05-07] MEDS ORDERED: Magnesium Sulf 4 GM/100 ML IV 4,000 MG/100 ML BAG IVPB ONE ×2 (17:47→22:00)
[2022-05-07] MEDS: HYDROcodone/ACETAMIN 5/325 mg TAB PO PRN (17:49)
[2022-05-07] MEDS: KCL 20 MEQ/100 ML IVPREMIX 20 MEQ/100 ML BAG IV SCH ×3 (19:56→21:29)
[2022-05-08] MEDS: KCL 20 MEQ/100 ML IVPREMIX 20 MEQ/100 ML BAG IV SCH ×2 (04:20→05:54)
[2022-05-08] MEDS: ZOSYN 3.375 GM Q8H per EXTENDED INFUSION IV SCH (06:17)
[2022-05-08 06:27] LABS: ABS Lymphocytes 0.9 10^3/ul (1.0-4.8); ABS Monocytes 0.3 10^3/ul (0-0.8); ABS Neutrophils 1.2 10^3/ul (1.5-7.7); Eosinophil % 1.1 %; Hematocrit 25 % (35-47); Hemoglobin 8.6 g/dL (12.0-16.0); Mean Corpuscular HGB Conc 34 g/dL (31-36); Mean Corpuscular Hemoglobin 31 pg (27-31); Mean Corpuscular Volume 91 fL (80-97); Mean Platelet Volume 8.2 fL (7.4-10.4); Nucleated Red Blood Cells % 0.3; Platelet Count 17 10^3/uL (150-450); Red Blood Count 2.78 10^6 /uL (3.70-4.87); Red Cell Distribution Width 15 % (10-15); White Blood Count 2.4 10^3/uL (3.5-10.8)
[2022-05-08 06:34] LABS: Albumin 3.1 g/dL (3.2-5.2); Albumin/Globulin Ratio 1.2 (1-3); C Reactive Protein 14.05 mg/L (<8.01); Calcium 8.6 mg/dL (8.6-10.3); Globulin 2.5 g/dL (2-4); Potassium 3.7 mmol/L (3.5-5.0); Total Bilirubin 0.5 mg/dL (0.2-1.0); Total Protein 5.6 g/dL (6.4-8.9); eGFR CKD-EPI 58.8 (>60)
[2022-05-08] MEDS: Polyethylene Glycol 3350 17 GM PACKET PO SCH (08:41)
[2022-05-08 09:23] LABS: Magnesium 3.1 mg/dL (1.9-2.7)
[2022-05-08] MEDS: NS 0.9% 1000 ml BAG 1,000 ML IV SCH (14:30)
[2022-05-08 15:26] LABS: Mean Platelet Volume 7.2 fL (7.4-10.4); Platelet Count 50 10^3/uL (150-450)
[2022-05-08] MEDS: HYDROcodone/ACETAMIN 5/325 mg TAB PO PRN (23:06)
[2022-05-09] MEDS: NS 0.9% 1000 ml BAG 1,000 ML IV SCH ×2 (01:20→14:39)
[2022-05-09 05:14] LABS: ABS Lymphocytes 0.9 10^3/ul (1.0-4.8); ABS Monocytes 0.3 10^3/ul (0-0.8); ABS Neutrophils 0.9 10^3/ul (1.5-7.7); Eosinophil % 0.8 %; Hematocrit 21 % (35-47); Hemoglobin 6.8 g/dL (12.0-16.0); Lymphocyte % 41.8 %; Mean Corpuscular HGB Conc 33 g/dL (31-36); Mean Corpuscular Hemoglobin 30 pg (27-31); Mean Corpuscular Volume 92 fL (80-97); Mean Platelet Volume 7.4 fL (7.4-10.4); Platelet Count 39 10^3/uL (150-450); Red Blood Count 2.25 10^6 /uL (3.70-4.87); Red Cell Distribution Width 15 % (10-15); White Blood Count 2.1 10^3/uL (3.5-10.8)
[2022-05-09 05:47] LABS: Calcium 7.8 mg/dL (8.6-10.3); Potassium 3.5 mmol/L (3.5-5.0); eGFR CKD-EPI 75.5 (>60)
[2022-05-09 07:50] LABS: Magnesium 1.8 mg/dL (1.9-2.7)
[2022-05-09] MEDS: HYDROcodone/ACETAMIN 5/325 mg TAB PO PRN ×2 (08:23→21:53)
[2022-05-09] MEDS: Polyethylene Glycol 3350 17 GM PACKET PO SCH (10:13)
[2022-05-09 16:55] LABS: Hematocrit 25 % (35-47); Hemoglobin 8.2 g/dL (12.0-16.0)
[2022-05-10] MEDS: NS 0.9% 1000 ml BAG 1,000 ML IV SCH ×3 (00:45→23:20)
[2022-05-10 04:42] LABS: ABS Monocytes 0.3 10^3/ul (0-0.8); ABS Neutrophils 0.7 10^3/ul (1.5-7.7); Eosinophil % 0.5 %; Hematocrit 21 % (35-47); Hemoglobin 7.2 g/dL (12.0-16.0); Lymphocyte % 50.6 %; Mean Corpuscular HGB Conc 34 g/dL (31-36); Mean Corpuscular Hemoglobin 30 pg (27-31); Mean Corpuscular Volume 90 fL (80-97); Mean Platelet Volume 7.3 fL (7.4-10.4); Platelet Count 29 10^3/uL (150-450); Red Blood Count 2.38 10^6 /uL (3.70-4.87); Red Cell Distribution Width 14 % (10-15)
[2022-05-10 04:57] LABS: Calcium 7.9 mg/dL (8.6-10.3); Magnesium 1.6 mg/dL (1.9-2.7); Potassium 3.4 mmol/L (3.5-5.0); eGFR CKD-EPI 78.9 (>60)
[2022-05-10] MEDS: HYDROcodone/ACETAMIN 5/325 mg TAB PO PRN ×2 (08:53→23:20)
[2022-05-10] MEDS: Polyethylene Glycol 3350 17 GM PACKET PO SCH (08:54)
[2022-05-11] MEDS: NS 0.9% 1000 ml BAG 1,000 ML IV SCH (08:29)
[2022-05-11] MEDS: Polyethylene Glycol 3350 17 GM PACKET PO SCH (08:29)
[2022-05-11 13:09] LABS: ABS Lymphocytes 0.8 10^3/ul (1.0-4.8); ABS Monocytes 0.3 10^3/ul (0-0.8); ABS Neutrophils 1.4 10^3/ul (1.5-7.7); Eosinophil % 0.3 %; Hematocrit 23 % (35-47); Hemoglobin 7.7 g/dL (12.0-16.0); Lymphocyte % 32.4 %; Mean Corpuscular HGB Conc 34 g/dL (31-36); Mean Corpuscular Hemoglobin 30 pg (27-31); Mean Corpuscular Volume 89 fL (80-97); Mean Platelet Volume 7.4 fL (7.4-10.4); Platelet Count 20 10^3/uL (150-450); Red Blood Count 2.56 10^6 /uL (3.70-4.87); Red Cell Distribution Width 14 % (10-15); White Blood Count 2.5 10^3/uL (3.5-10.8)
[2022-05-11 13:11] LABS: Calcium 8.3 mg/dL (8.6-10.3); INR 1.01 (0.89-1.11); Potassium 3.6 mmol/L (3.5-5.0)
[2022-05-11 13:17] LABS: eGFR CKD-EPI 74.4 (>60)
[2022-05-11] MEDS: CMCS:Tranexamic Acid 650 MG TAB (NF) PO SCH ×2 (14:46→20:44)
[2022-05-11] MEDS ORDERED: Magnesium Sulfate 2 gm BAG 2 GM/50 ML BAG IVPB ONE (20:04)
[2022-05-11] MEDS: HYDROcodone/ACETAMIN 5/325 mg TAB PO PRN (22:25)
[2022-05-12 04:25] LABS: Hematocrit 26 % (35-47); Hemoglobin 8.7 g/dL (12.0-16.0); Mean Corpuscular HGB Conc 34 g/dL (31-36); Mean Corpuscular Hemoglobin 30 pg (27-31); Mean Corpuscular Volume 88 fL (80-97); Mean Platelet Volume 7.9 fL (7.4-10.4); Platelet Count 18 10^3/uL (150-450); Red Blood Count 2.91 10^6 /uL (3.70-4.87); Red Cell Distribution Width 14 % (10-15); White Blood Count 2.4 10^3/uL (3.5-10.8)
[2022-05-12 04:57] LABS: Blood Urea Nitrogen 14 mg/dL (6-24); CO2 Carbon Dioxide 29 mmol/L (22-32); Calcium 8.4 mg/dL (8.6-10.3); Chloride 108 mmol/L (101-111); Glucose 102 mg/dL (70-100); Potassium 3.5 mmol/L (3.5-5.0); Sodium 137 mmol/L (135-145); eGFR CKD-EPI 71.3 (>60)
[2022-05-12 05:49] LABS: ABS Monocytes 0.4 10^3/ul (0-0.8); ABS Neutrophils 1.1 10^3/ul (1.5-7.7); Eosinophil % 0.3 %; Nucleated Red Blood Cells % 0.1
[2022-05-12 08:33] LABS: Mean Platelet Volume 8.8 fL (7.4-10.4); Platelet Count 60 10^3/uL (150-450)
[2022-05-12] MEDS: CMCS:Tranexamic Acid 650 MG TAB (NF) PO SCH ×3 (08:41→19:59)
[2022-05-12] MEDS: Polyethylene Glycol 3350 17 GM PACKET PO SCH (08:42)
[2022-05-13 04:44] LABS: ABS Lymphocytes 0.8 10^3/ul (1.0-4.8); ABS Monocytes 0.3 10^3/ul (0-0.8); Eosinophil % 0.4 %; Hematocrit 21 % (35-47); Hemoglobin 7.1 g/dL (12.0-16.0); Lymphocyte % 36.3 %; Mean Corpuscular HGB Conc 33 g/dL (31-36); Mean Corpuscular Hemoglobin 29 pg (27-31); Mean Corpuscular Volume 89 fL (80-97); Mean Platelet Volume 9.1 fL (7.4-10.4); Nucleated Red Blood Cells % 0.1; Platelet Count 51 10^3/uL (150-450); Red Blood Count 2.41 10^6 /uL (3.70-4.87); Red Cell Distribution Width 15 % (10-15); White Blood Count 2.1 10^3/uL (3.5-10.8)
[2022-05-13 04:55] LABS: Calcium 8.3 mg/dL (8.6-10.3); Potassium 3.7 mmol/L (3.5-5.0); eGFR CKD-EPI 66.6 (>60)
[2022-05-13] MEDS: Polyethylene Glycol 3350 17 GM PACKET PO SCH (08:04)
[2022-05-13] MEDS: CMCS:Tranexamic Acid 650 MG TAB (NF) PO SCH ×3 (08:56→20:17)
[2022-05-14 04:21] LABS: Hematocrit 23 % (35-47); Hemoglobin 7.6 g/dL (12.0-16.0); Mean Corpuscular HGB Conc 33 g/dL (31-36); Mean Corpuscular Hemoglobin 30 pg (27-31); Mean Corpuscular Volume 88 fL (80-97); Mean Platelet Volume 8.2 fL (7.4-10.4); Platelet Count 38 10^3/uL (150-450); Red Blood Count 2.57 10^6 /uL (3.70-4.87); Red Cell Distribution Width 14 % (10-15)
[2022-05-14 04:56] LABS: Calcium 8.3 mg/dL (8.6-10.3); Potassium 3.7 mmol/L (3.5-5.0); eGFR CKD-EPI 60.9 (>60)
[2022-05-14 06:35] LABS: ABS Lymphocytes 0.9 10^3/ul (1.0-4.8); ABS Monocytes 0.3 10^3/ul (0-0.8); ABS Neutrophils 0.8 10^3/ul (1.5-7.7); Eosinophil % 0.2 %; Lymphocyte % 42.4 %; Nucleated Red Blood Cells % 0.1
[2022-05-14] MEDS: Polyethylene Glycol 3350 17 GM PACKET PO SCH (09:37)
[2022-05-14] MEDS: CMCS:Tranexamic Acid 650 MG TAB (NF) PO SCH ×3 (10:43→20:12)
[2022-05-15] MEDS: HYDROcodone/ACETAMIN 5/325 mg TAB PO PRN ×2 (02:47→23:37)
[2022-05-15 05:45] LABS: ABS Lymphocytes 0.8 10^3/ul (1.0-4.8); ABS Monocytes 0.3 10^3/ul (0-0.8); ABS Neutrophils 1.3 10^3/ul (1.5-7.7); Eosinophil % 0.3 %; Hematocrit 20 % (35-47); Hemoglobin 6.5 g/dL (12.0-16.0); Lymphocyte % 34.8 %; Mean Corpuscular HGB Conc 33 g/dL (31-36); Mean Corpuscular Hemoglobin 30 pg (27-31); Mean Corpuscular Volume 90 fL (80-97); Mean Platelet Volume 8.1 fL (7.4-10.4); Nucleated Red Blood Cells % 0.2; Platelet Count 31 10^3/uL (150-450); Red Blood Count 2.19 10^6 /uL (3.70-4.87); Red Cell Distribution Width 14 % (10-15); White Blood Count 2.4 10^3/uL (3.5-10.8)
[2022-05-15 06:29] LABS: Calcium 8.4 mg/dL (8.6-10.3); Magnesium 1.8 mg/dL (1.9-2.7); Potassium 3.9 mmol/L (3.5-5.0); eGFR CKD-EPI 60.9 (>60)
[2022-05-15] MEDS: CMCS:Tranexamic Acid 650 MG TAB (NF) PO SCH ×3 (08:32→20:56)
[2022-05-15] MEDS ORDERED: Magnesium Sulfate IV 1GM/100ML 1 GM/100 ML BAG IV ONE (08:39)
[2022-05-15] MEDS: Polyethylene Glycol 3350 17 GM PACKET PO SCH (08:45)
[2022-05-15 15:36] LABS: Hematocrit 24 % (35-47); Hemoglobin 8.1 g/dL (12.0-16.0)
[2022-05-16 06:19] LABS: Calcium 8.3 mg/dL (8.6-10.3); Magnesium 1.9 mg/dL (1.9-2.7); Potassium 4.1 mmol/L (3.5-5.0); eGFR CKD-EPI 59.5 (>60)
[2022-05-16 06:36] LABS: Hematocrit 21 % (35-47); Hemoglobin 7.2 g/dL (12.0-16.0); Mean Corpuscular HGB Conc 34 g/dL (31-36); Mean Corpuscular Hemoglobin 30 pg (27-31); Mean Corpuscular Volume 90 fL (80-97); Mean Platelet Volume 8.2 fL (7.4-10.4); Platelet Count 30 10^3/uL (150-450); Red Blood Count 2.37 10^6 /uL (3.70-4.87); Red Cell Distribution Width 14 % (10-15); White Blood Count 2.2 10^3/uL (3.5-10.8)
[2022-05-16] MEDS: Polyethylene Glycol 3350 17 GM PACKET PO SCH (10:08)
[2022-05-16] MEDS: CMCS:Tranexamic Acid 650 MG TAB (NF) PO SCH (18:46)
[2022-05-16] MEDS: HYDROcodone/ACETAMIN 5/325 mg TAB PO PRN (18:46)
[2022-05-16 19:05] LABS: Hematocrit 20 % (35-47); Hemoglobin 6.4 g/dL (12.0-16.0)
[2022-05-17] MEDS: HYDROcodone/ACETAMIN 5/325 mg TAB PO PRN ×2 (02:06→21:46)
[2022-05-17 06:43] LABS: Hematocrit 22 % (35-47); Hemoglobin 7.2 g/dL (12.0-16.0); Mean Corpuscular HGB Conc 33 g/dL (31-36); Mean Corpuscular Hemoglobin 30 pg (27-31); Mean Corpuscular Volume 90 fL (80-97); Mean Platelet Volume 7.3 fL (7.4-10.4); Platelet Count 30 10^3/uL (150-450); Red Blood Count 2.39 10^6 /uL (3.70-4.87); Red Cell Distribution Width 14 % (10-15); White Blood Count 1.6 10^3/uL (3.5-10.8)
[2022-05-17 07:22] LABS: Calcium 8.2 mg/dL (8.6-10.3); Magnesium 1.9 mg/dL (1.9-2.7); Potassium 3.9 mmol/L (3.5-5.0); eGFR CKD-EPI 56.1 (>60)
[2022-05-17 07:46] LABS: ABS Neutrophils 0.7 10^3/ul (1.5-7.7)
[2022-05-17 07:48] LABS: ABS Lymphocytes 0.7 10^3/ul (1.0-4.8); ABS Monocytes 0.2 10^3/ul (0-0.8); Eosinophil % 0.1 %; Lymphocyte % 40.2 %; Nucleated Red Blood Cells % 0.6
[2022-05-17] MEDS: Polyethylene Glycol 3350 17 GM PACKET PO SCH (10:47)
[2022-05-18 03:08] LABS: ABS Lymphocytes 0.6 10^3/ul (1.0-4.8); ABS Monocytes 0.2 10^3/ul (0-0.8); ABS Neutrophils 1.1 10^3/ul (1.5-7.7); Eosinophil % 0.3 %; Hematocrit 22 % (35-47); Hemoglobin 7.3 g/dL (12.0-16.0); Lymphocyte % 31.8 %; Mean Corpuscular HGB Conc 33 g/dL (31-36); Mean Corpuscular Hemoglobin 29 pg (27-31); Mean Corpuscular Volume 88 fL (80-97); Mean Platelet Volume 7.4 fL (7.4-10.4); Nucleated Red Blood Cells % 0.1; Platelet Count 82 10^3/uL (150-450); Red Blood Count 2.48 10^6 /uL (3.70-4.87); Red Cell Distribution Width 14 % (10-15); White Blood Count 1.9 10^3/uL (3.5-10.8)
[2022-05-18] MEDS: Polyethylene Glycol 3350 17 GM PACKET PO SCH (10:08)
[2022-05-18 11:32] LABS: Hematocrit 23 % (35-47); Hemoglobin 7.6 g/dL (12.0-16.0)
[2022-05-18 18:17] LABS: Hematocrit 23 % (35-47); Hemoglobin 7.5 g/dL (12.0-16.0); Mean Platelet Volume 7.6 fL (7.4-10.4); Platelet Count 88 10^3/uL (150-450)
[2022-05-18] MEDS: HYDROcodone/ACETAMIN 5/325 mg TAB PO PRN (22:06)
[2022-05-19 05:51] LABS: ABS Lymphocytes 0.6 10^3/ul (1.0-4.8); ABS Monocytes 0.2 10^3/ul (0-0.8); ABS Neutrophils 0.8 10^3/ul (1.5-7.7); Eosinophil % 0.3 %; Hematocrit 22 % (35-47); Hemoglobin 7.2 g/dL (12.0-16.0); Lymphocyte % 36.1 %; Mean Corpuscular HGB Conc 33 g/dL (31-36); Mean Corpuscular Hemoglobin 30 pg (27-31); Mean Corpuscular Volume 89 fL (80-97); Mean Platelet Volume 7.3 fL (7.4-10.4); Nucleated Red Blood Cells % 0.4; Platelet Count 76 10^3/uL (150-450); Red Blood Count 2.43 10^6 /uL (3.70-4.87); Red Cell Distribution Width 14 % (10-15); White Blood Count 1.6 10^3/uL (3.5-10.8)
[2022-05-19 06:26] LABS: Calcium 8.1 mg/dL (8.6-10.3); Potassium 3.6 mmol/L (3.5-5.0); eGFR CKD-EPI 67.5 (>60)
[2022-05-19] MEDS: Polyethylene Glycol 3350 17 GM PACKET PO SCH (09:04)
[2022-05-19 15:47] LABS: Hematocrit 24 % (35-47); Hemoglobin 8.2 g/dL (12.0-16.0)
[2022-05-19] MEDS: HYDROcodone/ACETAMIN 5/325 mg TAB PO PRN (20:20)
[2022-05-20 06:17] LABS: ABS Lymphocytes 0.5 10^3/ul (1.0-4.8); ABS Monocytes 0.2 10^3/ul (0-0.8); ABS Neutrophils 0.9 10^3/ul (1.5-7.7); Eosinophil % 0.3 %; Hematocrit 22 % (35-47); Hemoglobin 7.3 g/dL (12.0-16.0); Lymphocyte % 30.8 %; Mean Corpuscular HGB Conc 33 g/dL (31-36); Mean Corpuscular Hemoglobin 30 pg (27-31); Mean Corpuscular Volume 90 fL (80-97); Mean Platelet Volume 7.3 fL (7.4-10.4); Nucleated Red Blood Cells % 0.1; Platelet Count 72 10^3/uL (150-450); Red Blood Count 2.48 10^6 /uL (3.70-4.87); Red Cell Distribution Width 14 % (10-15); White Blood Count 1.6 10^3/uL (3.5-10.8)
[2022-05-20 06:41] LABS: Calcium 8.2 mg/dL (8.6-10.3); Magnesium 1.8 mg/dL (1.9-2.7); Potassium 3.8 mmol/L (3.5-5.0); eGFR CKD-EPI 69.3 (>60)
[2022-05-20] MEDS: Polyethylene Glycol 3350 17 GM PACKET PO SCH (07:57)
[2022-05-20] MEDS: HYDROcodone/ACETAMIN 5/325 mg TAB PO PRN ×2 (18:35→23:28)
[2022-05-21 07:23] LABS: ABS Lymphocytes 0.5 10^3/ul (1.0-4.8); ABS Monocytes 0.2 10^3/ul (0-0.8); ABS Neutrophils 0.9 10^3/ul (1.5-7.7); Eosinophil % 0.8 %; Hematocrit 28 % (35-47); Hemoglobin 9.6 g/dL (12.0-16.0); Lymphocyte % 32.1 %; Mean Corpuscular HGB Conc 34 g/dL (31-36); Mean Corpuscular Hemoglobin 31 pg (27-31); Mean Corpuscular Volume 91 fL (80-97); Mean Platelet Volume 7.3 fL (7.4-10.4); Nucleated Red Blood Cells % 0.2; Platelet Count 62 10^3/uL (150-450); Red Blood Count 3.08 10^6 /uL (3.70-4.87); Red Cell Distribution Width 14 % (10-15); White Blood Count 1.6 10^3/uL (3.5-10.8)
[2022-05-21 07:24] LABS: Calcium 8.3 mg/dL (8.6-10.3); Magnesium 1.8 mg/dL (1.9-2.7); Potassium 3.7 mmol/L (3.5-5.0); eGFR CKD-EPI 74.4 (>60)
[2022-05-21] MEDS ORDERED: Magnesium Sulfate 2 gm BAG 2 GM/50 ML BAG IVPB ONE (07:24)
[2022-05-21] MEDS: Polyethylene Glycol 3350 17 GM PACKET PO SCH (11:04)
[2022-05-21 15:22] VITALS: BP 114/60
== END 2022-05-21 15:32 | disposition home health service (06) | DRG 760 ==
LOC: ED 14:08 → EDHOLD 14:08 → SUATTDRO 19:55 → EDHOLD 05-03 08:30 → MEDTELE 05-03 09:10 → SUATTDRO 05-05 07:27
PROVIDERS: ADMIT Student in an Organized Health Care Education/Training Program; ATTEND Internal Medicine